=== PATIENT | male | born 1960 | race Caucasian/White ===

== ENCOUNTER 2022-10-20 06:54 | Day surgery (SDC) | payer MEDICARE ==
[~2022-10-20] VITALS: Ht 172.7 cm; Wt 77.1 kg
[~2022-10-20 06:54] MED LIST: ASPIRIN LOW81 M1 PO; LISINOPRIL10 MG PO; METFORMIN500 M2 PO; MULTI VIT PO
[2022-10-20 09:52] VITALS: BP 134/71
== END 2022-10-20 09:45 | disposition home or self-care (01) ==
LOC: ENDO 06:54 → ORM 08:00 → ENDO 09:45
PROVIDERS: ATTEND Surgery
PROC: 0DBG8ZX Excision of Left Large Intestine, Via Natural or Artificial Opening Endoscopic, Diagnostic (ICD-10-PCS; principal; 2022-10-20)
DX: Z12.11 Encounter for screening for malignant neoplasm of colon (principal); K63.5 Polyp of colon; K57.30 Diverticulosis of large intestine without perforation or abscess without bleeding; F17.200 Nicotine dependence, unspecified, uncomplicated; E11.9 Type 2 diabetes mellitus without complications; K64.8 Other hemorrhoids; Z79.84 Long term (current) use of oral hypoglycemic drugs; Z80.0 Family history of malignant neoplasm of digestive organs

== ENCOUNTER 2022-12-19 08:26 | Emergency (ER) | payer MEDICARE ==
[~2022-12-19] VITALS: Ht 172.7 cm; Wt 79.4 kg
[2022-12-19 08:33] VITALS: BP 143/77
[2022-12-19 08:45] VITALS: BP 156/81
[2022-12-19 09:00] VITALS: BP 150/83
[2022-12-19 09:15] VITALS: BP 151/74
[2022-12-19 09:30] VITALS: BP 143/69
[2022-12-19] MEDS ORDERED: TRAMADOL HYDROC50 M1 PO (09:30)
[2022-12-19] MEDS ORDERED: NAPROXEN EC500 MG PO (09:30)
== END 2022-12-19 09:46 | disposition home or self-care (01) ==
LOC: ED 08:26
DX: M17.12 Unilateral primary osteoarthritis, left knee (principal); I10 Essential (primary) hypertension; E11.9 Type 2 diabetes mellitus without complications; F17.200 Nicotine dependence, unspecified, uncomplicated; Z79.84 Long term (current) use of oral hypoglycemic drugs

== ENCOUNTER 2024-05-13 18:28 | Emergency (ER) | payer MEDICARE ==
[~2024-05-13] VITALS: Ht 172.7 cm; Wt 75.0 kg
[~2024-05-13 18:28] MED LIST changes: +KEFLEX500 MG PO; +NAPROXEN EC500 MG PO; +TRAMADOL HYDROC50 M1 PO
[2024-05-13] MEDS ORDERED: FLUORESCEIN SODIUM 1 MG EA OD ONE (19:10)
[2024-05-13 19:16] VITALS: BP 135/72
[2024-05-13 19:31] VITALS: BP 149/74
[2024-05-13] MEDS ORDERED: ERYTHROMYCIN O3.5 GM OS (19:33)
[2024-05-13 19:42] VITALS: BP 149/74
== END 2024-05-13 19:55 | disposition home or self-care (01) ==
LOC: ED 18:28
PROC: 08C9XZZ Extirpation of Matter from Left Cornea, External Approach (ICD-10-PCS; principal; 2024-05-13)
DX: T15.02XA Foreign body in cornea, left eye, initial encounter (principal); I10 Essential (primary) hypertension; E11.9 Type 2 diabetes mellitus without complications; W44.9XXA Unspecified foreign body entering into or through a natural orifice, initial encounter; Z79.84 Long term (current) use of oral hypoglycemic drugs; Z72.0 Tobacco use

== ENCOUNTER 2024-05-13 20:16 | Emergency (ER) | payer MEDICARE ==
[~2024-05-13 20:16] MED LIST changes: +ERYTHROMYCIN O3.5 GM OS
== END 2024-05-13 21:25 | disposition left against medical advice (07) ==
LOC: ED 20:16 → LWOBS 21:25
DX: Z53.21 Procedure and treatment not carried out due to patient leaving prior to being seen by health care provider (principal)